=== PATIENT | male | born 1960 | race Caucasian/White ===

== ENCOUNTER 2016-07-01 13:36 | Observation (INO) | payer OTHER ==
[~2016-07-01] VITALS: Ht 172.7 cm; Wt 92.0 kg
[2016-07-01] VITALS (8 sets, daily range): BP systolic 146–162; BP diastolic 86–104; PULSE 68–101; RESP 16–18; TEMP 97.6–98.4; O2SAT 96–98
[~2016-07-01 13:36] MED LIST: ALPR0.5T99 PO; CYCL-36 PO; OXYC-360 PO; PROM25SU8 PO
[2016-07-01] MEDS ORDERED: NITROGLYCERIN 2% OINT 1 GM PACKET TOP ONE (13:45)
[2016-07-01] MEDS ORDERED: SODIUM CHLORIDE 0.9% FLUSH 5 ML FLUSH IVF PRN (13:45)
--- NOTE | 2016-07-01 13:53 | PD ---
HPI Chief Complaint: Chest Pain Time Seen by Provider: 13:41 Travel History International Travel<30 days: No Contact w/Intl Traveler<30days: No Traveled to known affect area: No History of Present Illness HPI 56-year-old male presents with central chest pain that is been present over the past day or 2. He states he went to his primary care physician's office to try to get his blood pressure prescription as he's been off of his medication for 10 days and when he informed them he was also having chest pain they called an ambulance. He states that he had no change with nitroglycerin. He was also given aspirin in route. His initial EKG did not show STEMI criteria. He states that he has no other concurrent complaints. PFSH Past Medical History Anxiety: Yes Cardiovascular Problems: Yes Hypertension: Yes Past Surgical History Other Surgery: Yes (SINUSES) Family History Family Myocardial Infarction: Yes Social History Alcohol Use: Yes (3 BEERS DAILY) Tobacco Use: No Substance Use: No Allergies-Medications (Allergen,Severity, Reaction): Coded Allergies: No Known Allergies (Verified , 07/01/16) Reported Meds & Prescriptions Reported Meds & Active Scripts Active Reported Xanax (Alprazolam) 0.5 Mg Tab 0.5 Mg PO Q8H PRN Review of Systems Except as stated in HPI: all other systems reviewed are Neg Physical Exam Narrative GENERAL: Well-nourished, well-developed patient. SKIN: Warm and dry. HEAD: Normocephalic and atraumatic. EYES: No injection or drainage. ENT: No nasal drainage noted. NECK: Supple, trachea midline. CARDIOVASCULAR: Regular rate and rhythm RESPIRATORY: Breath sounds equal bilaterally. No accessory muscle use. GASTROINTESTINAL: Abdomen soft, non-tender, nondistended. EXTREMITIES: No edema. NEUROLOGICAL: Awake and alert. Motor and sensory grossly within normal limits. Normal speech. Data Data Last Documented VS Vital Signs Date Time Temp Pulse Resp B/P Pulse Ox O2 Delivery O2 Flow Rate FiO2 07/01/16 14:56 76 18 146/94 98 Room Air 07/01/16 13:39 97.6 Orders Electrocardiogram (07/01/16 ) Ckmb (Isoenzyme) Profile (07/01/16 13:41) Complete Blood Count With Diff (07/01/16 13:41) Comprehensive Metabolic Panel (07/01/16 13:41) Magnesium (Mg) (07/01/16 13:41) Prothrombin Time / Inr (Pt) (07/01/16 13:41) Act Partial Throm Time (Ptt) (07/01/16 13:41) Troponin I (07/01/16 13:41) Lipase (07/01/16 13:41) Chest, Single Ap (07/01/16 13:41) Ecg Monitoring (07/01/16 13:41) Bilateral Bp Monitoring (07/01/16 13:41) Iv Access Insert/Monitor (07/01/16 13:41) Oximetry (07/01/16 13:41) Nitroglycerin 2% Oint (Nitroglycerin 2% (07/01/16 13:45) Sodium Chloride 0.9% Flush (Ns Flush) (07/01/16 13:45) CKMB (07/01/16 13:50) CKMB% (07/01/16 13:50) Admit Order (Ed Use Only) (07/01/16 15:22) Labs Laboratory Tests Test 07/01/16 13:50 White Blood Count 5.2 TH/MM3 Red Blood Count 5.35 MIL/MM3 Hemoglobin 15.7 GM/DL Hematocrit 45.5 % Mean Corpuscular Volume 85.0 FL Mean Corpuscular Hemoglobin 29.4 PG Mean Corpuscular Hemoglobin 34.6 % Concent Red Cell Distribution Width 13.3 % Platelet Count 147 TH/MM3 Mean Platelet Volume 8.0 FL Neutrophils (%) (Auto) 65.5 % Lymphocytes (%) (Auto) 24.8 % Monocytes (%) (Auto) 6.8 % Eosinophils (%) (Auto) 2.6 % Basophils (%) (Auto) 0.3 % Neutrophils # (Auto) 3.4 TH/MM3 Lymphocytes # (Auto) 1.3 TH/MM3 Monocytes # (Auto) 0.4 TH/MM3 Eosinophils # (Auto) 0.1 TH/MM3 Basophils # (Auto) 0.0 TH/MM3 CBC Comment DIFF FINAL Differential Comment Prothrombin Time 11.0 SEC Prothromb Time International 1.0 RATIO Ratio Activated Partial 26.1 SEC Thromboplast Time Sodium Level 140 MEQ/L Potassium Level 3.9 MEQ/L Chloride Level 107 MEQ/L Carbon Dioxide Level 25.3 MEQ/L Anion Gap 8 MEQ/L Blood Urea Nitrogen 12 MG/DL Creatinine 0.97 MG/DL Estimat Glomerular Filtration 80 ML/MIN Rate Random Glucose 93 MG/DL Calcium Level 8.3 MG/DL Magnesium Level 2.0 MG/DL Total Bilirubin 0.6 MG/DL Aspartate Amino Transf 21 U/L (AST/SGOT) Alanine Aminotransferase 29 U/L (ALT/SGPT) Alkaline Phosphatase 85 U/L Total Creatine Kinase 195 U/L Creatine Kinase MB 1.5 NG/ML Troponin I LESS THAN 0.02 NG/ML Total Protein 6.7 GM/DL Albumin 3.8 GM/DL Lipase 153 U/L MDM Medical Decision Making Medical Screen Exam Complete: Yes Emergency Medical Condition: Yes Medical Record Reviewed: Yes (past history confirmed) Interpretation(s) EKG shows NSR, no ST elevation or depression, and no arrhythmias. No significant T-wave inversions. CBC & BMP Diagram 07/01/16 13:50 Last 24 hours Impressions Chest X-Ray 07/01/16 1341 Signed Impressions: Service Date/Time: Friday, July 01, 2016 13:53 - CONCLUSION: No acute disease. Finn Brown MD Differential Diagnosis Cardiac, gastritis, musculoskeletal Narrative Course Will check blood work, EKG, chest x-ray and dose with nitroglycerin and reevaluate ed workup no acute, will discuss with his healthcare associate patient updated and agrees to admit Physician Communication Physician Communication dr cox states to place in [facility] Diagnosis Primary Impression: Chest pain Qualified Code: R07.9 - Chest pain, unspecified type Admitting Information Admitting Physician Requests: Observation Marla Johnson MD Jul 01, 2016 13:53
[2016-07-01] MEDS ORDERED: ALPR.5 PO (13:57)
[2016-07-01 14:09] LABS: AUTOMATED NEUTROPHIL # 3.4 TH/MM3 (1.8-7.7); BASOPHIL % 0.3 % (0.0-2.0); EOSINOPHIL # 0.1 TH/MM3 (0-0.4); EOSINOPHIL % 2.6 % (0.0-4.0); HEMATOCRIT 45.5 % (39.0-51.0); HEMO FLAGS DIFF FINAL; LYMPH % 24.8 % (9.0-44.0); LYMPHOCYTE # 1.3 TH/MM3 (1.0-4.8); MEAN CORPUSCULAR HEMOGLOBIN 29.4 PG (27.0-34.0); MEAN CORPUSCULAR HGB CONC 34.6 % (32.0-36.0); MONO % 6.8 % (0.0-8.0); NEUT % 65.5 % (16.0-70.0); PLATELET COUNT 147 TH/MM3 (150-450); RED BLOOD COUNT 5.35 MIL/MM3 (4.50-5.90); RED CELL DISTRIBUTION WIDTH 13.3 % (11.6-17.2); WHITE BLOOD COUNT 5.2 TH/MM3 (4.0-11.0)
[2016-07-01 14:19] LABS: APTT (PATIENT) 26.1 SEC (24.3-30.1)
[2016-07-01 14:27] LABS: ALT (GPT) 29 U/L (12-78); ANION GAP 8 MEQ/L (5-15); AST (GOT) 21 U/L (15-37); BICARBONATE 25.3 MEQ/L (21.0-32.0); BLOOD UREA NITROGEN 12 MG/DL (7-18); CHLORIDE 107 MEQ/L (98-107); GLOMERULAR FILTRATION RATE 80 ML/MIN (>89); POTASSIUM 3.9 MEQ/L (3.5-5.1); SODIUM (NA) 140 MEQ/L (136-145)
[2016-07-01 14:31] LABS: ALKALINE PHOSPHATASE 85 U/L (45-117); CREATINE KINASE 195 U/L (39-308); TOTAL BILIRUBIN ADULT 0.6 MG/DL (0.2-1.0)
[2016-07-01 14:44] LABS: CKMB 1.5 NG/ML (0.5-3.6)
--- NOTE | 2016-07-01 14:46 | RADRPT ---
EXAM DATE/TIME: 07/01/2016 13:53 [facility] COMPARISON: No previous studies available for comparison. INDICATIONS : Chest pain. MEDICAL HISTORY : None. SURGICAL HISTORY : None. ENCOUNTER: Initial ACUITY: 1 day PAIN SCORE: 5/10 LOCATION: center chest FINDINGS: A single view of the chest demonstrates diminished lung volumes without evidence of mass, infiltrate or effusion. The cardiomediastinal contours are unremarkable. Osseous structures are intact. CONCLUSION: No acute disease. Finn Brown MD on July 01, 2016 at 14:38 Board Certified Radiologist. This report was verified electronically.
[2016-07-01] MEDS ORDERED: NITROGLYCERIN 0.4 MG SL 25 TABS/BTL SL PRN (16:15)
[2016-07-01] MEDS ORDERED: ONDANSETRON HCL 4 MG/2 ML VIAL IV PRN (16:15)
[2016-07-01] MEDS ORDERED: ACETAMINOPHEN 500 MG CPLT PO PRN (16:15)
[2016-07-01 18:08] LABS: CREATINE KINASE 184 U/L (39-308)
[2016-07-01 18:20] LABS: CKMB 1.6 NG/ML (0.5-3.6)
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
[2016-07-01] MEDS ORDERED: cloNIDine HCL 0.1 MG TAB PO PRN (19:45)
[2016-07-01] MEDS ORDERED: amLODIPine BESYLATE 5 MG TAB PO ONE (19:45)
[2016-07-01] MEDS: SODIUM CHLORIDE 0.9% FLUSH 5 ML FLUSH IVF SCH (20:06)
[2016-07-01] MEDS: KETOROLAC TROMETHAMINE 30 MG/ML (IVP) VIAL IV PUSH SCH (20:06)
[2016-07-01 22:04] LABS: CREATINE KINASE 177 U/L (39-308)
[2016-07-01 22:17] LABS: CKMB 1.4 NG/ML (0.5-3.6)
[2016-07-02] VITALS: BP 159/108; PULSE 68; RESP 18; TEMP 98.4; O2SAT 97
[2016-07-02] MEDS: KETOROLAC TROMETHAMINE 30 MG/ML (IVP) VIAL IV PUSH SCH (00:43)
[2016-07-02 05:10] VITALS: BP 110/64; PULSE 68; RESP 18; TEMP 98.4; O2SAT 98
[2016-07-02 05:36] VITALS: O2SAT 96
[2016-07-02] MEDS: SODIUM CHLORIDE 0.9% FLUSH 5 ML FLUSH IVF SCH (08:57)
[2016-07-02] MEDS ORDERED: AMLO5TAB2 PO (08:58)
--- NOTE | 2016-07-02 08:59 | HHI.DCPOC ---
Discharge Care Plan Diagnosis: (1) Chest pain (2) Hypertension Goals to Promote Your Health * To prevent worsening of your condition and complications * To maintain your health at the optimal level Directions to Meet Your Goals Take your medications as prescribed Follow your dietary instruction Follow activity as directed Keep your appointments as scheduled Take your immunizations and boosters as scheduled If your symptoms worsen call your PCP, if no PCP go to Urgent Care Center or Emergency Room Smoking is Dangerous to Your Health. Avoid second hand smoke Call the 24-hour hour crisis hotline for domestic abuse at Jaren Kenney Jul 02, 2016 08:59
[2016-07-02] MEDS ORDERED: ASPIRIN 325 MG TAB PO SCH (09:00)
[2016-07-02] MEDS ORDERED: amLODIPine BESYLATE 5 MG TAB PO SCH (09:00)
--- NOTE | 2016-07-02 15:51 | EKG ---
Date Performed: 07/01/2016 Time Performed: 19:38:10 PTAGE: 56 years EKG: Sinus rhythm NORMAL ECG PREVIOUS TRACING : 07/01/2016 17.13 Since previous tracing, no significant change noted DOCTOR: Michael Figueroa Interpretating Date/Time 07/02/2016 15:50:19
--- NOTE | 2016-07-02 15:51 | EKG ---
Date Performed: 07/01/2016 Time Performed: 17:13:12 PTAGE: 56 years EKG: Sinus rhythm NORMAL ECG PREVIOUS TRACING : 07/01/2016 13.49 Since previous tracing, no significant change noted DOCTOR: Michael Figueroa Interpretating Date/Time 07/02/2016 15:50:36
--- NOTE | 2016-07-02 15:52 | EKG ---
Date Performed: 07/01/2016 Time Performed: 13:49:43 PTAGE: 56 years EKG: Sinus rhythm NORMAL ECG PREVIOUS TRACING : 12/30/2009 01.08 Since previous tracing, no significant change noted DOCTOR: Michael Figueroa Interpretating Date/Time 07/02/2016 15:51:42
--- NOTE | 2016-07-02 15:58 | TR ---
Date Performed: 07/02/2016 Time Performed: 08:07:12 DOCTOR: Michael Figueroa DRUG LIST: CLINICAL HISTORY: CHEST PAIN REASON FOR TEST: REASON FOR ENDING: OBSERVATION: CONCLUSION: LAUREN PROTOCOL. STOPPED PRIOR TO REACHING GOAL HR SECONDARY TO SOB AND LEG FATIGUE. NO CHEST DISCOMFORTS.Maximum DG=117 % Max HR Achieved=75.0% Maximum WS=555/100 Total Exercise Time=9: 17 COMMENTS: Patient exercised using the Lauren protocol. No electrocardiographic changes were seen to suggest ischemia. Hemodynamic response to exercise was normal. No significant arrhythmia was prese nt.
== END 2016-07-02 11:06 | disposition home or self-care (01) ==
LOC: NEPC 13:36 → NEDA 15:23 → NEPHCDU 17:42
PROVIDERS: ADMIT Internal Medicine Interventional Cardiology; ATTEND Internal Medicine Interventional Cardiology
DX: I44.0 Atrioventricular block, first degree (principal); R07.89 Other chest pain; F41.9 Anxiety disorder, unspecified; I10 Essential (primary) hypertension; G47.30 Sleep apnea, unspecified; G47.00 Insomnia, unspecified; E78.5 Hyperlipidemia, unspecified
CPT/HCPCS: 71010; 80053; 82550; 82552; 83690; 83735; 84484; 85025; 85610; 85730; 93005; 93017; 99285; G0378; J1885